=== PATIENT | female | born 1975 | race Caucasian/White ===

== ENCOUNTER → 2016-12-24 | Outpatient (CLI) | payer MEDICAID | LOC: BMCIMAGING 18:57 | PROVIDERS: ATTEND Emergency Medicine | DX: S92.352A Displaced fracture of fifth metatarsal bone, left foot, initial encounter for closed fracture (principal) ==

== ENCOUNTER → 2017-01-03 | Outpatient (CLI) | payer MEDICAID | LOC: BMCIMAGING 10:59 | PROVIDERS: ATTEND Podiatrist Foot & Ankle Surgery | DX: S92.355D Nondisplaced fracture of fifth metatarsal bone, left foot, subsequent encounter for fracture with routine healing (principal) ==

== ENCOUNTER → 2017-01-21 | Outpatient (CLI) | payer MEDICAID | LOC: CIMAGING 09:04 | PROVIDERS: ATTEND Obstetrics & Gynecology Gynecology | DX: D25.2 Subserosal leiomyoma of uterus (principal); D25.1 Intramural leiomyoma of uterus; N88.8 Other specified noninflammatory disorders of cervix uteri | CPT/HCPCS: 76856-PO ==

== ENCOUNTER → 2017-04-04 | Outpatient (CLI) | payer MEDICAID | LOC: CIMAGING 13:01 | PROVIDERS: ATTEND Obstetrics & Gynecology Gynecology | DX: N63 Unspecified lump in breast (principal) | CPT/HCPCS: 76641-PO; G0204 ==

== ENCOUNTER 2017-04-10 12:09 | Day surgery (SDC) | payer MEDICAID ==
[2017-04-10] MEDS ORDERED: LIDOCAINE 1% 2 ML INJ ID PRN (12:45)
[2017-04-10 12:49] VITALS: O2SAT 100
[2017-04-10] MEDS ORDERED: LR 1,000 ML IV SCH (13:00)
[2017-04-10] MEDS ORDERED: MIDAZOLAM 2 MG/2 ML VIAL ONE (13:18)
--- NOTE | 2017-04-10 13:18 | PDGENHP ---
History & Physical Chief Complaint: constipation History of Present Illness: Chronic constipation Relevant Physical Exam: Normal cardiac, pulmonary and abdominal exam. Cardiorespiratory Assessment: Normal
[2017-04-10] MEDS ORDERED: fentaNYL 100 MCG/2 ML INJ ONE (13:19)
--- NOTE | 2017-04-10 13:36 | POSTOPPROG ---
Post Op Note Date of Operation: 04/10/17 Surgeon: Diogenes Steel Pre-op Diagnosis: constipation Post-op Diagnosis: same Indication: same Procedure: colonoscopy Findings: healthy colon Inf/Abcess present in the surg proc area at time of surgery?: No EBL: Minimal (none) Specimen(s): none
[2017-04-10 13:51] VITALS: RESP 14
[2017-04-10 14:24] VITALS: BP 100/65; PULSE 45; TEMP 97.9
--- NOTE | 2017-04-11 09:28 | GPN ---
[f rep st] PROCEDURE NOTE INDICATION: Ms. Mayer is a 42-year-old female with chronic constipation. Bowel movements are occa sionally irregular in caliber. Colonoscopy is being performed to rule out a structural problem as t he cause of the patient's symptoms. DESCRIPTION OF PROCEDURE: The patient was placed in left lateral decubitus position, received 6 mg intravenous Versed, 100 mcg intravenous fentanyl. Video colonoscope was introduced through the anus and rectum above colon, gross transverse colon, then right colon to cecum. FINDINGS: Follows normal colonoscopic exam with no polyps, tumors, or lesions noted. At this point , instrument was removed. The patient tolerated the procedure well, was returned to recovery in sta ble condition. RECOMMENDATIONS: 1. The patient should continue with her current regimen with magnesium to control her bowels. 2. For colon cancer screening, next colonoscopy can be in 10 years' time. /[id number]/MODL
== END 2017-04-10 14:40 | disposition home or self-care (01) ==
LOC: FSGY 12:09
PROVIDERS: ATTEND Internal Medicine Gastroenterology
PROC: 0DJD8ZZ Inspection of Lower Intestinal Tract, Via Natural or Artificial Opening Endoscopic (ICD-10-PCS; principal; 2017-04-10 13:00)
DX: K59.00 Constipation, unspecified (principal)
CPT/HCPCS: J2250; J3010

== ENCOUNTER → 2017-05-10 | Outpatient (CLI) | payer MEDICAID | LOC: BRMIMAGING 14:09 | PROVIDERS: ATTEND Podiatrist Foot & Ankle Surgery | DX: Z13.820 Encounter for screening for osteoporosis (principal); M85.80 Other specified disorders of bone density and structure, unspecified site ==

== ENCOUNTER → 2017-05-23 | Outpatient (CLI) | payer MEDICAID | LOC: BMCIMAGING 10:05 | PROVIDERS: ATTEND Podiatrist Foot & Ankle Surgery | DX: S92.355D Nondisplaced fracture of fifth metatarsal bone, left foot, subsequent encounter for fracture with routine healing (principal) | CPT/HCPCS: 84144-90; 84481-90; G0472 ==

== ENCOUNTER → 2017-07-11 | Outpatient (CLI) | payer MEDICAID | LOC: BMCIMAGING 13:54 | PROVIDERS: ATTEND Family Medicine | DX: S92.352K Displaced fracture of fifth metatarsal bone, left foot, subsequent encounter for fracture with nonunion (principal); M25.561 Pain in right knee ==

== ENCOUNTER → 2017-10-12 | Outpatient (CLI) | payer MEDICAID | LOC: FIMAGING 08:45 | DX: S43.402A Unspecified sprain of left shoulder joint, initial encounter (principal); M75.22 Bicipital tendinitis, left shoulder ==

== ENCOUNTER → 2018-08-06 | Outpatient (CLI) | payer MEDICAID | LOC: FIMAGING 15:50 | PROVIDERS: ATTEND Obstetrics & Gynecology Gynecology | DX: Z12.31 Encounter for screening mammogram for malignant neoplasm of breast (principal) ==

== ENCOUNTER → 2018-08-25 | Outpatient (CLI) | payer MEDICAID ==
[~2018-08-25] MED LIST: THROMBIN (BOVINE) 5,000 UNIT VIAL TP ONE
== END ==
LOC: FIMAGING 07:13
PROVIDERS: ATTEND Nurse Practitioner Women's Health
PROC: 0HBT3ZX Excision of Right Breast, Percutaneous Approach, Diagnostic (ICD-10-PCS; principal; 2018-08-25)
DX: D24.1 Benign neoplasm of right breast (principal)